=== PATIENT | female | born 1980 | race Asian ===

== ENCOUNTER 2018-05-29 20:55 | Emergency (ER) | payer BC, OTHER ==
[~2018-05-29] VITALS: Ht 160 cm; Wt 49.9 kg
[2018-05-29 21:00] VITALS: BP 125/62
[2018-05-29] MEDS ORDERED: CIPROFLOXACIN HCL 500 MG TABLET ONE (21:00)
[2018-05-29] MEDS: CIPROFLOXACIN HCL 250 MG TABLET PO ONE (21:14)
== END 2018-05-29 21:29 | disposition home or self-care (01) ==
LOC: ER 20:59
DX: Z20.811 Contact with and (suspected) exposure to meningococcus (principal)
CPT/HCPCS: 99282; A4606; Z7610